=== PATIENT | male | born 1960 | race Caucasian/White ===

== ENCOUNTER 2019-01-02 10:11 | Day surgery (SDC) | payer OTHER ==
[2019-01-02] MEDS ORDERED: PROPOFOL 60 ML (12:39)
== END 2019-01-02 13:08 | disposition home or self-care (01) ==
LOC: GIL 10:11
DX: Z12.11 Encounter for screening for malignant neoplasm of colon (principal); K29.50 Unspecified chronic gastritis without bleeding; K64.8 Other hemorrhoids; D12.5 Benign neoplasm of sigmoid colon; D12.8 Benign neoplasm of rectum; K44.9 Diaphragmatic hernia without obstruction or gangrene; K21.9 Gastro-esophageal reflux disease without esophagitis; I10 Essential (primary) hypertension; E78.5 Hyperlipidemia, unspecified
CPT/HCPCS: 43239; 88305; 88312